=== PATIENT | male | born 1975 | race Caucasian/White ===

== ENCOUNTER 2020-04-09 01:45 | Emergency (ER) | payer MEDICAID ==
[~2020-04-09] VITALS: Ht 170.2 cm; Wt 127.0 kg
[~2020-04-09 01:45] MED LIST: METF100028 PO
[2020-04-09 01:50] VITALS: BP 142/83
--- NOTE | 2020-04-09 01:50 | NUR ---
biba to bed 14.
[2020-04-09] MEDS ORDERED: ZIPRASIDONE MESYLATE 20 MG/ML VIAL IM ONE (01:55)
--- NOTE | 2020-04-09 02:00 | NUR ---
PATIENT UA AND GLADYS COVID SWAB COLLECTED AND TAKEN TO LAB.
[2020-04-09 03:33] LABS: BASOPHILS # (AUTO) 0.1 K/uL (0.00-0.22); BASOPHILS % (AUTO) 0.9 % (0.0-2.0); EOSINOPHILS # (AUTO) 0.1 K/uL (0-0.4); HEMATOCRIT 42.1 % (36-52); HEMOGLOBIN 14.4 g/dL (12.0-18.0); LYMPHOCYTES % (AUTO) 37.5 % (20.5-51.1); MEAN CORPUSCULAR HEMOGLOBIN 29 pg (27-31); MEAN CORPUSCULAR HGB CONC 34 g/dL (33-37); MEAN CORPUSCULAR VOLUME 85.9 fL (80-94); MONOCYTES # (AUTO) 0.9 K/uL (0.8-1.0); MONOCYTES % (AUTO) 11.6 % (1.7-9.3); NEUTROPHILS # (AUTO) 3.9 K/uL (1.8-7.7); PLATELET COUNT (AUTO) 207 K/uL (140-450); RED CELL DISTRIBUTION WIDTH 13.5 % (11.6-13.7); WHITE BLOOD COUNT (AUTO) 8.1 K/uL (4.8-10.8)
[2020-04-09 03:45] LABS: APPEARANCE,URINE CLEAR (CLEAR); BILIRUBIN,URINE NEGATIVE (NEGATIVE); BLOOD, URINE NEGATIVE (NEGATIVE); COLOR,URINE YELLOW (YELLOW); LEUKOCYTE ESTERASE ,URINE NEGATIVE (NEGATIVE); NITRITE, URINE NEGATIVE (NEGATIVE); PH,URINE 6.5 (5.0-9.0); UGLUCOSE 2+ (NEGATIVE)
[2020-04-09 03:59] LABS: ALBUMIN 3.6 g/dL (3.4-5.0); ANION GAP 12.2 (8-16); ASPARTATE AMINOTRANSFERASE 28 U/L (15-37); CARBON DIOXIDE 26.2 mmol/L (21-32); CHLORIDE 102 mmol/L (98-107); GFR ARICAN-AMERICAN 103 mL/min (>90); GLUCOSE 257 mg/dL (74-106); POTASSIUM 3.4 mmol/L (3.5-5.1); SODIUM SERUM 137 mmol/L (136-145); THYROID STIMULATING HORMONE 1.19 uIU/mL (0.34-3.74); TOTAL BILIRUBIN 0.7 mg/dL (0.0-1.0); UREA NITROGEN, BLOOD 28 mg/dL (7-18)
--- NOTE | 2020-04-09 04:00 | NUR ---
pt asleep in bed. visible chest rise and fall. denies any other needs.
[2020-04-09 04:07] LABS: BARBITURATE, URINE NEGATIVE ng/ml (NEG <=200); BENZODIAZEPINE, URINE NEGATIVE ng/mL (NEG <=200); CANNABINOID, URINE POSITIVE ng/mL (NEG <=50); COCAINE, URINE NEGATIVE ng/mL (NEG <=300); OPIATE, URINE NEGATIVE ng/mL (NEG <=2000); PHENCYCLIDINE SCREEN,URINE NEGATIVE ng/mL (NEG <=25)
[2020-04-09 04:09] LABS: RBC,URINE NONE SEEN /HPF (0-5); WBC,URINE NONE SEEN /HPF (0-5)
[2020-04-09 04:14] LABS: ACETAMINOPHEN < 0.5 ug/ml (10-30); SALICYLATE < 2.8 mg/dL (2.8-20.0)
--- NOTE | 2020-04-09 05:10 | NUR ---
pt is calmly asleep in bed. no other needs at this time.
--- NOTE | 2020-04-09 06:36 | NUR ---
see complete assessment.
[2020-04-09] MEDS ORDERED: KETOROLAC 30 MG/ML VIAL ONE (06:46)
--- NOTE | 2020-04-09 06:47 | NUR ---
Received intake. Called ER and spoke with Wanda and let her know most facilities are not accepting patients without the PCR Covid. She will advise.
--- NOTE | 2020-04-09 07:04 | NUR ---
Intake information was sent to the following facilities, pending PCR. Will keep facility updated with any information
--- NOTE | 2020-04-09 07:12 | NUR ---
Faxed to [facility]/ [place]/ [address]
--- NOTE | 2020-04-09 10:12 | NUR ---
Spoke to Tammy at [facility] and report was given. Pt was accepted to [facility] and transportation can be made.
[2020-04-09 11:10] VITALS: BP 135/85
--- NOTE | 2020-04-09 11:10 | NUR ---
DALIA AT BEDSIDE. AND SON CAME TO SAY GOODBYE TO PATIENT PRIOR TO TRANSFER. TOOK ALL PATIENT BELONGINGS HOME WITH. REPORT GIVEN TO [id number]. PT TRANSFERRED TO [facility]. COOPERATIVE AND STABLE.
== END 2020-04-09 11:10 ==
LOC: MED 01:45
DX: F20.9 Schizophrenia, unspecified (principal); Z20.828 Contact with and (suspected) exposure to other viral communicable diseases; R45.851 Suicidal ideations; R45.850 Homicidal ideations; E11.9 Type 2 diabetes mellitus without complications; I10 Essential (primary) hypertension; Z91.14 Patient's other noncompliance with medication regimen; Z79.84 Long term (current) use of oral hypoglycemic drugs
CPT/HCPCS: 36415; 80053; 80305; 81001; 84443; 85025; 87426; 96372; 99285; G0480; G0482; J1885; J3486; U0003; 99283